=== PATIENT | male | born 1970 | race Native Hawaiian/Other Pacific Islander ===

== ENCOUNTER 2020-10-08 11:00 | Emergency (ER) | payer OTHER ==
[~2020-10-08] VITALS: Ht 177.8 cm; Wt 77.1 kg
--- NOTE | 2020-10-08 11:15 | NUR ---
Dr Bernstein at the bedside for MSE.
[2020-10-08 12:12] VITALS: BP 116/80
--- NOTE | 2020-10-08 12:12 | NUR ---
Patient discharged to home in stable condition. Written and verbal after care instructions given. Patient verbalizes understanding of instructions. Stressed follow up or return to ER for worsening s/s.
== END 2020-10-08 12:12 | disposition home or self-care (01) ==
LOC: ER 11:00
DX: F41.9 Anxiety disorder, unspecified (principal); G47.00 Insomnia, unspecified; H54.7 Unspecified visual loss; F32.9 Major depressive disorder, single episode, unspecified
CPT/HCPCS: A4663